=== PATIENT | female | born 1980 | race African-American/Black ===

== ENCOUNTER 2021-03-03 17:57 | Inpatient (IN) | payer SELFPAY ==
[~2021-03-03] VITALS: Ht 170.2 cm; Wt 111.1 kg
[2021-03-03] MEDS ORDERED: SODIUM CHLORIDE 0.9% 1000ML 1,000 ML IV STA (18:13)
[2021-03-03] MEDS ORDERED: ACETAMIN/BUTALBITAL/CAFFEINE TAB PO ONE (18:15)
[2021-03-03] MEDS ORDERED: DIPHENHYDRAMINE HCL INJ 50 MG/ML VIAL IV ONE (18:15)
[2021-03-03] MEDS ORDERED: METOCLOPRAMIDE HCL 10 MG/2ML VIAL IV ONE (18:15)
[2021-03-03] MEDS ORDERED: AMLODIPINE BESY10 MG PO (18:31)
[2021-03-03] MEDS ORDERED: CLONIDINE HCL0.3 MG PO (18:31)
[2021-03-03] MEDS ORDERED: COREG12.5 MG PO (18:31)
[2021-03-03] MEDS ORDERED: HYDRALAZINE HCL25 MG PO (18:31)
[2021-03-03 18:33] LABS: BASOPHILS # (AUTO) 0.1 (0.0-0.1); BASOPHILS % 0.6 % (0.0-1.0); EOSINOPHILS # (AUTO) 0.4 (0.0-0.4); EOSINOPHILS % 4.1 % (0.0-6.0); HEMATOCRIT 29.1 % (34.2-44.1); HEMOGLOBIN 8.4 g/dL (12.0-16.0); LYMPHOCYTES # (AUTO) 1.7 (1.0-3.2); LYMPHOCYTES % 19.4 % (18.0-39.1); MEAN CORPUSCULAR HEMOGLOBIN 18.2 pg (28-32); MEAN CORPUSCULAR HGB CONC 28.9 g/dL (31-35); MEAN CORPUSCULAR VOLUME 63.1 fL (81-99); MONOCYTES # (AUTO) 0.6 (0.2-0.8); MONOCYTES % 6.7 % (4.4-11.3); NEUTROPHILS # (AUTO) 6.1 (2.1-6.9); NEUTROPHILS % 68.7 % (38.7-80.0); PLATELET COUNT 364 x10e3/uL (140-360); RED BLOOD COUNT 4.61 x10e6/uL (3.6-5.1); RED CELL DISTRIBUTION WIDTH 19.1 % (11.7-14.4)
[2021-03-03] MEDS ORDERED: HYDRALAZINE HCL 20 MG/ML VIAL IV STA (18:59)
[2021-03-03 19:05] LABS: ALBUMIN 3.5 g/dL (3.5-5.0); ALBUMIN/GLOBULIN RATIO 0.8 (0.8-2.0); ANION GAP 16.8 mmol/L (8-16); CALCIUM 8.9 mg/dL (8.4-10.2); CREATININE, SERUM 3.45 mg/dL (0.57-1.11); POTASSIUM 4.8 mmol/L (3.5-5.1)
[2021-03-03 19:19] LABS: INR 0.93; PROTHROMBIN TIME 12.7 seconds (11.9-14.5)
[2021-03-03] MEDS ORDERED: SODIUM CHLORIDE 0.9% 1000ML 1,000 ML IV ONE (19:30)
[2021-03-03] MEDS ORDERED: HYDRALAZINE HCL 20 MG/ML VIAL ONE (22:02)
[2021-03-03] MEDS ORDERED: METHYLPREDNISOLONE SOD SUCC 125 MG/2ML VIAL IV ONE (23:15)
[2021-03-03] MEDS ORDERED: ONDANSETRON HCL INJ 2MG/ML 2ML 2 MG/ML VIAL IV STA (23:35)
[2021-03-03] MEDS ORDERED: MORPHINE SULFATE INJ 4 MG/ML INJ 1ML ONE (23:38)
[2021-03-03] MEDS ORDERED: ONDANSETRON HCL INJ 2MG/ML 2ML 2 MG/ML VIAL ONE (23:38)
[2021-03-03] MEDS ORDERED: MORPHINE SULFATE INJ 4 MG/ML INJ 1ML IV ONE (23:45)
[2021-03-04] MEDS ORDERED: CLONIDINE HCL 0.2 MG TAB ONE (04:25)
[2021-03-04] MEDS ORDERED: CLONIDINE HCL 0.1 MG TAB ONE (04:26)
[2021-03-04] MEDS ORDERED: CLONIDINE HCL 0.3 MG TAB PO ONE (04:30)
[2021-03-04] MEDS ORDERED: ONDANSETRON HCL INJ 2MG/ML 2ML 2 MG/ML VIAL IV PRN (07:45)
[2021-03-04] MEDS ORDERED: ZOLPIDEM TARTRATE 5 MG TAB PO PRN (07:45)
[2021-03-04] MEDS ORDERED: DOCUSATE SODIUM 100 MG CAP PO PRN (07:45)
[2021-03-04 09:06] LABS: BASOPHILS % 0.1 % (0.0-1.0); EOSINOPHILS % 0.1 % (0.0-6.0); HEMATOCRIT 27.6 % (34.2-44.1); LYMPHOCYTES % 10.7 % (18.0-39.1); MEAN CORPUSCULAR HEMOGLOBIN 18.5 pg (28-32); MEAN CORPUSCULAR VOLUME 63.7 fL (81-99); MONOCYTES # (AUTO) 0.1 (0.2-0.8); MONOCYTES % 1.3 % (4.4-11.3); NEUTROPHILS # (AUTO) 7.9 (2.1-6.9); NEUTROPHILS % 87.1 % (38.7-80.0); PLATELET COUNT 338 x10e3/uL (140-360); RED BLOOD COUNT 4.33 x10e6/uL (3.6-5.1); RED CELL DISTRIBUTION WIDTH 18.9 % (11.7-14.4)
[2021-03-04] MEDS: CARVEDILOL 12.5 MG TAB PO SCH ×2 (09:06→17:00)
[2021-03-04] MEDS: CLONIDINE HCL 0.1 MG TAB PO SCH ×2 (09:06→17:00)
[2021-03-04] MEDS: HYDRALAZINE HCL 25 MG TAB PO SCH ×2 (09:06→17:00)
[2021-03-04] MEDS: NIFEDIPINE CR 30 MG TAB PO SCH ×2 (09:07→20:17)
[2021-03-04 09:35] LABS: ALBUMIN 3.4 g/dL (3.5-5.0); ALBUMIN/GLOBULIN RATIO 0.8 (0.8-2.0); CALCIUM 8.9 mg/dL (8.4-10.2); CREATININE, SERUM 3.28 mg/dL (0.57-1.11)
[2021-03-04 10:47] LABS: ANISOCYTOSIS MODERATE; HYPOCHROMASIA MODERATE; MICROCYTOSIS MODERATE; PLATELET ESTIMATE ADEQUATE; PLATELET MORPHOLOGY COMMENT FEW LARGE; RBC MORPHOLOGY COMMENT ABNORMAL
[2021-03-04 10:48] LABS: CHOL/HDL RATIO 2.6 (3.0-3.6)
[2021-03-04 13:00] VITALS: BP 148/91
[2021-03-04 16:18] VITALS: BP 145/89
[2021-03-04 20:00] VITALS: BP 137/90
[2021-03-04 21:44] VITALS: BP 137/90
[2021-03-05] VITALS (8 sets, daily range): BP systolic 136–154; BP diastolic 75–104
[2021-03-05] MEDS: CLONIDINE HCL 0.1 MG TAB PO SCH (08:23)
[2021-03-05] MEDS: HYDRALAZINE HCL 25 MG TAB PO SCH (08:23)
[2021-03-05] MEDS: CARVEDILOL 12.5 MG TAB PO SCH ×2 (08:23→17:00)
[2021-03-05] MEDS: NIFEDIPINE CR 30 MG TAB PO SCH ×2 (08:23→20:18)
[2021-03-05 08:34] LABS: ANION GAP 15.6 mmol/L (8-16); CREATININE, SERUM 3.46 mg/dL (0.57-1.11); POTASSIUM 3.6 mmol/L (3.5-5.1)
[2021-03-05] MEDS ORDERED: CHLORASEPTIC SPRAY 177 ML BTL MM PRN (08:45)
[2021-03-05] MEDS ORDERED: ONDANSETRON HCL INJ 2MG/ML 2ML 2 MG/ML VIAL IV PRN (12:00)
[2021-03-05] MEDS ORDERED: ALPRAZOLAM 1 MG TAB PO ONE (14:29)
[2021-03-05] MEDS: HYDRALAZINE HCL 100 MG TABLET PO SCH ×2 (16:00→21:00)
[2021-03-05] MEDS ORDERED: DIPHENHYDRAMINE HCL 25 MG CAP PO PRN (19:30)
[2021-03-05] MEDS: ACETAMINOPHEN 325 MG TAB PO PRN (23:00)
[2021-03-05] MEDS: HYDROCODONE/APAP 5MG-325MG TAB PO PRN (23:46)
[2021-03-06] VITALS (8 sets, daily range): BP systolic 134–168; BP diastolic 64–110
[2021-03-06 06:30] LABS: BASOPHILS # (AUTO) 0.1 (0.0-0.1); BASOPHILS % 0.6 % (0.0-1.0); EOSINOPHILS # (AUTO) 0.3 (0.0-0.4); EOSINOPHILS % 3.1 % (0.0-6.0); HEMATOCRIT 27.7 % (34.2-44.1); LYMPHOCYTES # (AUTO) 2.4 (1.0-3.2); LYMPHOCYTES % 23.3 % (18.0-39.1); MEAN CORPUSCULAR HEMOGLOBIN 18.5 pg (28-32); MEAN CORPUSCULAR HGB CONC 28.9 g/dL (31-35); MEAN CORPUSCULAR VOLUME 64.1 fL (81-99); MONOCYTES # (AUTO) 0.5 (0.2-0.8); MONOCYTES % 5.2 % (4.4-11.3); NEUTROPHILS # (AUTO) 6.8 (2.1-6.9); NEUTROPHILS % 67.4 % (38.7-80.0); PLATELET COUNT 338 x10e3/uL (140-360); RED BLOOD COUNT 4.32 x10e6/uL (3.6-5.1)
[2021-03-06 06:39] LABS: ANION GAP 15.7 mmol/L (8-16); CALCIUM 8.7 mg/dL (8.4-10.2); CREATININE, SERUM 3.35 mg/dL (0.57-1.11); MAGNESIUM 2.1 MG/DL (1.3-2.1); POTASSIUM 3.7 mmol/L (3.5-5.1)
[2021-03-06 07:05] LABS: THYROID STIMULATING HORMONE 2.192 uIU/mL (0.350-4.940)
[2021-03-06] MEDS: HYDRALAZINE HCL 100 MG TABLET PO SCH ×3 (08:38→21:00)
[2021-03-06] MEDS: CARVEDILOL 12.5 MG TAB PO SCH ×2 (08:38→18:23)
[2021-03-06] MEDS: NIFEDIPINE CR 30 MG TAB PO SCH ×2 (08:39→21:00)
[2021-03-06] MEDS: HYDROCODONE/APAP 5MG-325MG TAB PO PRN ×2 (12:10→18:20)
[2021-03-06] MEDS ORDERED: BUTALB-ACETAMI1 EAC2 (12:38)
[2021-03-06] MEDS ORDERED: SUMATRIPTAN SUCCINATE 6 MG/0.5 ML VIAL SC NR (15:30)
[2021-03-06 17:53] LABS: CLARITY,URINE CLEAR (CLEAR); COLOR,URINE YELLOW (YELLOW)
[2021-03-06 17:54] LABS: KETONES,URINE NEGATIVE (NEGATIVE); LEUKOCYTE ESTERASE ,URINE TRACE (NEGATIVE); NITRITE,URINE NEGATIVE (NEGATIVE); PROTEIN,URINE DIPSTICK 2+ (NEGATIVE); URINE UROBILINOGEN 0.2 mg/dL (0.2 - 1)
[2021-03-06 17:55] LABS: BACTERIA,URINE RARE /HPF; EPITHELIAL CELLS,URINE FEW /LPF; RBC,URINE 0-5 /HPF (0-5)
[2021-03-06] MEDS: MELATONIN 5 MG TABLET PO PRN (21:15)
[2021-03-06] MEDS: ACETAMINOPHEN 325 MG TAB PO PRN (23:00)
[2021-03-07] VITALS (8 sets, daily range): BP systolic 145–176; BP diastolic 92–101
[2021-03-07] MEDS: HYDROCODONE/APAP 5MG-325MG TAB PO PRN ×2 (00:20→22:32)
[2021-03-07 07:01] LABS: ANION GAP 15.3 mmol/L (8-16); CALCIUM 8.7 mg/dL (8.4-10.2); CREATININE, SERUM 3.05 mg/dL (0.57-1.11); PHOSPHORUS 3.5 MG/DL (2.3-4.7); POTASSIUM 3.3 mmol/L (3.5-5.1)
[2021-03-07] MEDS ORDERED: EPOETIN ALFA-EPBX 10,000 UNIT/ML VIAL SC SCH (08:00)
[2021-03-07] MEDS ORDERED: SUMATRIPTAN SUCCINATE 6 MG/0.5 ML VIAL SC ONE (08:45)
[2021-03-07] MEDS: NIFEDIPINE CR 30 MG TAB PO SCH ×2 (09:00→21:32)
[2021-03-07] MEDS: HYDRALAZINE HCL 100 MG TABLET PO SCH ×3 (09:00→21:32)
[2021-03-07] MEDS: CARVEDILOL 12.5 MG TAB PO SCH ×2 (09:00→17:44)
[2021-03-07] MEDS ORDERED: POTASSIUM CHLORIDE 20 MEQ TAB CR PO ONE (15:16)
[2021-03-07] MEDS: MELATONIN 5 MG TABLET PO PRN (21:41)
[2021-03-08 00:28] VITALS: BP 156/87
[2021-03-08 05:22] VITALS: BP 162/99
[2021-03-08 06:11] LABS: ANION GAP 14.6 mmol/L (8-16); CALCIUM 8.7 mg/dL (8.4-10.2); CREATININE, SERUM 3.23 mg/dL (0.57-1.11); POTASSIUM 3.6 mmol/L (3.5-5.1)
[2021-03-08] MEDS ORDERED: SUMATRIPTAN SUCCINATE 6 MG/0.5 ML VIAL SC ONE (06:40)
[2021-03-08 07:18] VITALS: BP 161/99
[2021-03-08 07:50] VITALS: BP 161/99
[2021-03-08] MEDS: NIFEDIPINE CR 30 MG TAB PO SCH (08:20)
[2021-03-08] MEDS: CARVEDILOL 12.5 MG TAB PO SCH (08:20)
[2021-03-08] MEDS: HYDRALAZINE HCL 100 MG TABLET PO SCH (08:20)
[2021-03-08] MEDS ORDERED: HYDRALAZINE HC100 MG PO (11:32)
[2021-03-08] MEDS ORDERED: NIFEDIPINE ER30 M1 PO (11:32)
[2021-03-08] MEDS ORDERED: COREG12.5 MG PO (11:32)
[2021-03-08 11:40] VITALS: BP 145/79
[2021-03-08] MEDS ORDERED: SUMATRIPTAN SUCCINATE 25 MG TAB PO PRN (11:45)
[2021-03-08] MEDS: HYDROCODONE/APAP 5MG-325MG TAB PO PRN (11:45)
[2021-03-08] MEDS ORDERED: NIFEDIPINE CR 30 MG TAB PO ONE (12:00)
[2021-03-08] MEDS ORDERED: ONDANSETRON HCL 4 MG ORAL DISINTEGRATING TAB PO PRN (13:52)
[2021-03-08] MEDS ORDERED: NIFEDIPINE CR 30 MG TAB PO SCH (21:00)
== END 2021-03-08 13:52 | disposition home or self-care (01) | DRG 305 ==
LOC: ER 18:12 → ERHOLD 21:59 → OBSVTOIN 03-04 07:50 → MED/SURG 03-04 13:00
PROVIDERS: ADMIT Internal Medicine; ATTEND Internal Medicine
DX: I16.1 Hypertensive emergency (principal); N18.4 Chronic kidney disease, stage 4 (severe); N17.9 Acute kidney failure, unspecified; F17.210 Nicotine dependence, cigarettes, uncomplicated; I12.9 Hypertensive chronic kidney disease with stage 1 through stage 4 chronic kidney disease, or unspecified chronic kidney disease; E11.22 Type 2 diabetes mellitus with diabetic chronic kidney disease; Z79.899 Other long term (current) drug therapy; E66.01 Morbid (severe) obesity due to excess calories; Z68.38 Body mass index [BMI] 38.0-38.9, adult; G43.909 Migraine, unspecified, not intractable, without status migrainosus; Z20.822 Contact with and (suspected) exposure to COVID-19
CPT/HCPCS: 36415; 70450; 70551; 76770; 80048; 80053; 80061; 81001; 83036; 83735; 84100; 84165; 84443; 85025; 85610; 86039; 86160; 86225; 99284; G0378; J0360; J1200; J2270; J2405; J2765; J2930; J3030; J7030; U0002